=== PATIENT | male | born 1960 | race Caucasian/White ===

== ENCOUNTER 2020-06-30 23:34 | Emergency (ER) | payer SELFPAY ==
[~2020-06-30] VITALS: Ht 182.9 cm; Wt 118.8 kg
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
[2020-07-01] MEDS ORDERED: HYDROcodone/APAP 5/325 TABLET ONE (00:54)
[2020-07-01] MEDS ORDERED: HYDROcodone/APAP 5/325 TABLET PO ONE (01:00)
[2020-07-01 01:12] VITALS: BP 128/89
--- NOTE | 2020-07-01 01:13 | NUR ---
Patient given discharge instructions and they have confirmed that they understand the instructions. Patient ambulatory with steady gait. NAD, DENIES ADDITIONAL QUESTIONS OR NEEDS, PROVIDED TAXI VOUCHER NO PERSONAL BELONGINGS LEFT IN ED AT TIME OF DC.
== END 2020-07-01 01:18 | disposition home or self-care (01) ==
LOC: ED 07-01 00:40
DX: S52.571A Other intraarticular fracture of lower end of right radius, initial encounter for closed fracture (principal); I10 Essential (primary) hypertension; E78.00 Pure hypercholesterolemia, unspecified; W18.30XA Fall on same level, unspecified, initial encounter; Y93.89 Activity, other specified; Y92.238 Other place in hospital as the place of occurrence of the external cause; Y99.8 Other external cause status
CPT/HCPCS: 29125; 99283